=== PATIENT | female | born 1970 | race Caucasian/White ===

== ENCOUNTER → 2021-08-08 | Outpatient (CLI) | payer OTHER ==
[2021-08-09 13:13] LABS: RHEUMATOID ARTHRITIS FACTOR <10.0 IU/mL (0.0-13.9)
== END ==
LOC: LAB 12:20
PROVIDERS: Nurse Practitioner Family
DX: M25.50 Pain in unspecified joint (principal); D89.9 Disorder involving the immune mechanism, unspecified; M79.10 Myalgia, unspecified site
CPT/HCPCS: 36415; 82550; 83520; 85652; 86140; 86200; 86431

== ENCOUNTER → 2022-01-23 | Outpatient (CLI) | payer OTHER | LOC: KOH-I 12:56 | DX: M47.26 Other spondylosis with radiculopathy, lumbar region (principal) | CPT/HCPCS: 72100 ==